=== PATIENT | female | born 1935 | race Caucasian/White ===

== ENCOUNTER 2018-12-21 12:26 | Inpatient (IN) | payer MEDICARE, MEDICAID ==
[~2018-12-21] VITALS: Ht 165.1 cm; Wt 95.3 kg
[~2018-12-21 12:26] MED LIST: FURO-151 PO; PIOG30TA10 PO
[2018-12-21] MEDS ORDERED: TRAMADOL 50MG TABLET PO ONE (13:00)
[2018-12-21] MEDS ORDERED: FUROSEMIDE 40MG/4ML VIAL IVP ONE (13:45)
[2018-12-21 13:47] LABS: BASOPHILS % 0.6 % (0.0-2.0); EOSINOPHILS % 0.3 % (0.0-5.0); HEMATOCRIT. 39.9 % (36.0-48.0); HEMOGLOBIN. 13.1 g/dL (12.0-16.0); LYMPHOCYTES % 18.6 % (20.0-50.0); MEAN CORPUSCULAR HEMOGLOBIN 31.4 pg (28.0-32.0); MEAN CORPUSCULAR VOLUME 95.9 fL (81.0-99.0); MEAN PLATELET VOLUME 9.1 fl (7.4-10.4); MONOCYTES % 6.9 % (2.0-8.0); NEUTROPHILS % 73.6 % (40.0-76.0); PLATELET 172 x1000/uL (130-400); RED BLOOD CELL COUNT 4.16 mill/uL (4.2-5.4); RED CELL DISTRIBUTION WIDTH 15.7 % (11.6-14.6)
[2018-12-21 13:54] LABS: CHLORIDE 112 mEq/L (98-107); PARTIAL THROMBOPLASTIN TIME 22.3 sec (23.4-31.0); PROTHROMBIN TIME 10.3 sec (9.1-11.1)
[2018-12-21 15:31] LABS: CLARITY URINE CLEAR (CLEAR); COLOR URINE YELLOW (YELLOW); KETONES URINE NEGATIVE (NEGATIVE); LEUKOCYTE ESTERASE URINE TRACE (NEGATIVE); NITRITE URINE NEGATIVE (NEGATIVE); OCCULT BLOOD URINE NEGATIVE (NEGATIVE); PROTEIN URINE NEGATIVE (NEGATIVE); SPECIFIC GRAVITY URINE 1.017 (1.005-1.030); UROBILINOGEN URINE 0.2 E.U./dL (0.2-1.0)
[2018-12-21] MEDS ORDERED: NA PHOS,M-B/NA PHOS,DI-BA ENEMA 118ML PR PRN (20:45)
[2018-12-21] MEDS ORDERED: CLONIDINE 0.1MG TABLET PO PRN (20:45)
[2018-12-21] MEDS ORDERED: MAGNESIUM/ALUMINUM HYDROXIDE/SIMETHICONE 30ML UDC PO PRN (20:45)
[2018-12-21] MEDS ORDERED: DOCUSATE SODIUM 100MG CAPSULE PO PRN (20:45)
[2018-12-21] MEDS ORDERED: GUAIFENESIN 200MG/10ML SUGAR FREE UDC PO PRN (20:45)
[2018-12-21] MEDS ORDERED: ONDANSETRON HCL 4MG/2ML INJ IV PRN (20:45)
[2018-12-21] MEDS ORDERED: ACETAMINOPHEN 325MG TABLET PO PRN (20:45)
[2018-12-21] MEDS ORDERED: DIPHENHYDRAMINE 50MG/ML VIAL IV PRN (20:45)
[2018-12-21] MEDS ORDERED: ACETAMINOPHEN 650MG SUPP PR PRN (20:45)
[2018-12-21] MEDS ORDERED: IPRATROPIUM/ALBUTEROL 0.5-3(2.5)MG/3ML NEB INH PRN (20:45)
[2018-12-21] MEDS ORDERED: ACETAMINOPHEN 650MG/20.3ML UDC GT PRN (20:45)
[2018-12-21] MEDS: SODIUM CHLORIDE 0.9% INJ 3ML FLUSH IVF SCH (22:00)
[2018-12-22 00:04] LABS: CREATINE KINASE 36 IU/L (26-192)
[2018-12-22 00:05] LABS: CREATINE KINASE MB FRACTION < 1.0 ng/mL (0.5-3.6)
[2018-12-22] MEDS ORDERED: HYDROCODONE/ACETAMINOPHEN 5/325MG TABLET PO PRN (05:52)
[2018-12-22] MEDS: SODIUM CHLORIDE 0.9% INJ 3ML FLUSH IVF SCH (06:03)
[2018-12-22 06:13] LABS: BASOPHILS % 0.6 % (0.0-2.0); EOSINOPHILS % 1.3 % (0.0-5.0); HEMATOCRIT. 37.5 % (36.0-48.0); HEMOGLOBIN. 12.3 g/dL (12.0-16.0); LYMPHOCYTES % 23.7 % (20.0-50.0); MEAN CORPUSCULAR HEMOGLOBIN 31.2 pg (28.0-32.0); MEAN CORPUSCULAR VOLUME 95.1 fL (81.0-99.0); MEAN PLATELET VOLUME 8.9 fl (7.4-10.4); MONOCYTES % 11.3 % (2.0-8.0); NEUTROPHILS % 63.1 % (40.0-76.0); PLATELET 169 x1000/uL (130-400); RED BLOOD CELL COUNT 3.94 mill/uL (4.2-5.4); RED CELL DISTRIBUTION WIDTH 15.5 % (11.6-14.6)
[2018-12-22 06:19] LABS: CHLORIDE 107 mEq/L (98-107)
[2018-12-22 06:26] LABS: LDL CHOLESTEROL 124 mg/dL (5-100)
[2018-12-22 06:27] LABS: CREATINE KINASE 41 IU/L (26-192)
[2018-12-22 06:28] LABS: HDL CHOLESTEROL 56 mg/dL (40-59)
[2018-12-22 06:30] LABS: CREATINE KINASE MB FRACTION < 1.0 ng/mL (0.5-3.6)
[2018-12-22 10:00] LABS: T4 FREE 1.19 ng/dL (0.76-1.46)
[2018-12-22] MEDS ORDERED: FUROSEMIDE 40MG/4ML VIAL IV NR (11:00)
[2018-12-22] MEDS ORDERED: ENOXAPARIN 40MG/0.4ML SYR SUBCUT SCH (11:15)
[2018-12-22] MEDS: ENOXAPARIN 30MG/0.3ML SYR SUBCUT SCH (11:30)
[2018-12-22 17:54] LABS: CREATINE KINASE 42 IU/L (26-192)
[2018-12-22 17:55] LABS: CREATINE KINASE MB FRACTION < 1.0 ng/mL (0.5-3.6)
[2018-12-22] MEDS: HYDROCODONE/ACETAMINOPHEN 10/325MG TABLET PO PRN ×2 (18:00→22:48)
[2018-12-22] MEDS ORDERED: CEFTRIAXONE 1 G PREMIX 50 ML IV NR (18:16)
[2018-12-22 23:07] LABS: CREATINE KINASE 41 IU/L (26-192)
[2018-12-22 23:08] LABS: CREATINE KINASE MB FRACTION < 1.0 ng/mL (0.5-3.6)
[2018-12-23] MEDS ORDERED: CEPH-569 MT (07:37)
[2018-12-23 07:45] LABS: CREATINE KINASE 41 IU/L (26-192)
[2018-12-23 07:47] LABS: CREATINE KINASE MB FRACTION < 1.0 ng/mL (0.5-3.6)
[2018-12-23 08:46] LABS: EOSINOPHILS % 3.7 % (0.0-5.0); HEMATOCRIT. 40.5 % (36.0-48.0); HEMOGLOBIN. 13.6 g/dL (12.0-16.0); MEAN CORPUSCULAR HEMOGLOBIN 31.7 pg (28.0-32.0); MEAN CORPUSCULAR VOLUME 94.7 fL (81.0-99.0); MEAN PLATELET VOLUME 8.8 fl (7.4-10.4); MONOCYTES % 14.3 % (2.0-8.0); PLATELET 162 x1000/uL (130-400); RED BLOOD CELL COUNT 4.27 mill/uL (4.2-5.4); RED CELL DISTRIBUTION WIDTH 15.5 % (11.6-14.6)
[2018-12-23 08:49] LABS: CHLORIDE 107 mEq/L (98-107)
[2018-12-23] MEDS ORDERED: FUROSEMIDE 40MG/4ML VIAL IV SCH (09:00)
[2018-12-23 10:07] VITALS: BP 151/41
[2018-12-23] MEDS ORDERED: ASPI-1159 MT (10:58)
[2018-12-23] MEDS ORDERED: ASPI-1160 MT (10:58)
[2018-12-23] MEDS ORDERED: VANCOMYCIN 1500MG in DEXTROSE 5% WATER 250ML IV NR (11:30)
[2018-12-23 12:00] VITALS: BP 134/46
[2018-12-23] MEDS ORDERED: INFLUENZA VIRUS VACCINE(AFLURIA) 0.5ML SYR IM ONE (12:30)
[2018-12-23] MEDS ORDERED: PNEUMOCOCCAL 23-VAL P-SAC VAC 0.5 ML IM ONE (12:30)
[2018-12-23] MEDS ORDERED: IOHEXOL-350 100 ML BOTTLE ONE (15:19)
[2018-12-23] MEDS ORDERED: CEFTRIAXONE 1,000 MG in DEXTROSE 5% WATER 50 ML IV SCH (18:00)
[2018-12-23] MEDS ORDERED: CEFTRIAXONE 1 G PREMIX 50 ML IV SCH (18:17)
[2018-12-23 20:00] VITALS: BP 142/38
[2018-12-23] MEDS: HYDROCODONE/ACETAMINOPHEN 10/325MG TABLET PO PRN (20:18)
[2018-12-23] MEDS: ENOXAPARIN 30MG/0.3ML SYR SUBCUT SCH (20:19)
[2018-12-24] VITALS: BP_SYST 135; BP_SYST 98; BP_DIAS 42
[2018-12-24 04:00] VITALS: BP 141/51
[2018-12-24] MEDS: HYDROCODONE/ACETAMINOPHEN 10/325MG TABLET PO PRN ×2 (04:53→13:49)
[2018-12-24] MEDS: SODIUM CHLORIDE 0.9% INJ 3ML FLUSH IVF SCH (05:25)
[2018-12-24 08:00] VITALS: BP 121/43
[2018-12-24] MEDS: ENOXAPARIN 30MG/0.3ML SYR SUBCUT SCH (08:29)
[2018-12-24] MEDS ORDERED: VANCOMYCIN 1 G PREMIX 200 ML IV SCH (09:00)
[2018-12-24 12:00] VITALS: BP 143/38
[2018-12-24] MEDS ORDERED: VANCOMYCIN 1250MG in DEXTROSE 5% WATER 250ML IV SCH (12:00)
[2018-12-24 14:33] VITALS: BP 143/43
[2018-12-24 16:00] VITALS: BP 144/42
== END 2018-12-24 19:02 | disposition home or self-care (01) | DRG 194 ==
LOC: ER 13:11 → 7WST 14:21 → EDBEDREQ 14:23 → ENRESERV 12-23 07:14
PROVIDERS: ADMIT Family Medicine; ATTEND Family Medicine
DX: I11.0 Hypertensive heart disease with heart failure (principal); L03.115 Cellulitis of right lower limb; E87.5 Hyperkalemia; E44.1 Mild protein-calorie malnutrition; L03.116 Cellulitis of left lower limb; E11.9 Type 2 diabetes mellitus without complications; E66.9 Obesity, unspecified; E78.00 Pure hypercholesterolemia, unspecified; E78.5 Hyperlipidemia, unspecified; M17.0 Bilateral primary osteoarthritis of knee; Z90.49 Acquired absence of other specified parts of digestive tract; Z90.710 Acquired absence of both cervix and uterus; Z98.891 History of uterine scar from previous surgery; Z68.34 Body mass index [BMI] 34.0-34.9, adult; I50.33 Acute on chronic diastolic (congestive) heart failure
CPT/HCPCS: 36415; 71045; 73562; 75635; 80061; 82550; 82553; 82962; 83036; 83880; 84439; 84443; 84484; 85379; 90732; 93005; 93306; 93923; 93970; 96365; 96375; 99284; 99285; J0696; J1650; J1940; J2405; J3370; J7050; J7060; Q9967

== ENCOUNTER 2022-04-21 10:35 | Inpatient (IN) | payer MEDICARE, MEDICAID ==
[~2022-04-21] VITALS: Ht 165.1 cm; Wt 82.1 kg
[~2022-04-21 10:35] MED LIST changes: +ASPI-1160 MT; +ASPI-1497 MT; +CEPH-569 MT
[2022-04-21] MEDS ORDERED: SODIUM CHLORIDE 0.9% 1000ML BAG (SEPSIS BOLUS) IV ONE (11:15)
[2022-04-21] MEDS ORDERED: VANCOMYCIN 1G PREMIX 200 ML IV ONE (11:15)
[2022-04-21] MEDS ORDERED: PIPERACILLIN/TAZ 3.375G PREMIX 50 ML IV ONE (11:15)
[2022-04-21 12:49] LABS: BASOPHILS % 0.8 % (0.0-2.0); EOSINOPHILS % 5.3 % (0.0-5.0); HEMATOCRIT. 36.2 % (36.0-48.0); HEMOGLOBIN. 11.9 g/dL (12.0-16.0); LYMPHOCYTES % 36.9 % (20.0-50.0); MEAN CORPUSCULAR HEMOGLOBIN 29.5 pg (28.0-32.0); MEAN CORPUSCULAR VOLUME 90.2 fL (81.0-99.0); MEAN PLATELET VOLUME 8.4 fl (7.4-10.4); MONOCYTES % 9.4 % (2.0-8.0); NEUTROPHILS % 47.6 % (40.0-76.0); PLATELET 300 x1000/uL (130-400); RED BLOOD CELL COUNT 4.01 mill/uL (4.2-5.4); RED CELL DISTRIBUTION WIDTH 18.8 % (11.6-14.6)
[2022-04-21 12:50] LABS: CHLORIDE 102 mEq/L (98-107)
[2022-04-21] MEDS ORDERED: DEXTROSE 50% WATER 50ML SYRINGE IV ONE (13:30)
[2022-04-21] MEDS ORDERED: CLONIDINE 0.1MG TABLET PO PRN (14:30)
[2022-04-21] MEDS ORDERED: IPRATROPIUM/ALBUTEROL 0.5-3(2.5)MG/3ML NEB HHN PRN (14:30)
[2022-04-21] MEDS ORDERED: ONDANSETRON HCL 4MG/2ML INJ IV PRN (14:30)
[2022-04-21] MEDS ORDERED: CEFTRIAXONE 1 G PREMIX 50 ML IV NR (14:30)
[2022-04-21] MEDS ORDERED: AZITHROMYCIN 500MG/250ML 250 ML IV NR (14:45)
[2022-04-21] MEDS ORDERED: SODIUM CHLORIDE 0.9% 1,000 ML IV ONE (16:00)
[2022-04-21 19:57] VITALS: BP 104/69
[2022-04-21 20:00] VITALS: BP 104/69
[2022-04-21] MEDS: ACETAMINOPHEN 325MG TABLET PO PRN (21:57)
[2022-04-21] MEDS: ATORVASTATIN CALCIUM 10MG TABLET PO SCH (21:57)
[2022-04-22] VITALS (9 sets, daily range): BP systolic 94–133; BP diastolic 38–70
[2022-04-22] MEDS: DIPHENHYDRAMINE 50MG/ML VIAL IV PRN (03:14)
[2022-04-22] MEDS ORDERED: DEXTROSE 50% WATER 50ML SYRINGE IV PRN (06:45)
[2022-04-22 08:08] LABS: BASOPHILS % 0.9 % (0.0-2.0); EOSINOPHILS % 6.9 % (0.0-5.0); HEMATOCRIT. 31.1 % (36.0-48.0); HEMOGLOBIN. 10.4 g/dL (12.0-16.0); LYMPHOCYTES % 20.3 % (20.0-50.0); MEAN CORPUSCULAR HEMOGLOBIN 30.6 pg (28.0-32.0); MEAN CORPUSCULAR VOLUME 91.5 fL (81.0-99.0); MEAN PLATELET VOLUME 8.6 fl (7.4-10.4); MONOCYTES % 12.5 % (2.0-8.0); NEUTROPHILS % 59.4 % (40.0-76.0); PLATELET 261 x1000/uL (130-400)
[2022-04-22 08:18] LABS: CHLORIDE 104 mEq/L (98-107)
[2022-04-22] MEDS ORDERED: LIDOCAINE HCL 1% 10 MG/ML 10ML VIAL ONE (08:56)
[2022-04-22] MEDS ORDERED: AZITHROMYCIN 500 MG in DEXT 5% WATER 250 ML IV SCH (10:00)
[2022-04-22] MEDS: DEXT 5%/0.9% NACL 1,000 ML IV SCH (11:22)
[2022-04-22] MEDS: CEFTRIAXONE 1,000 MG in DEXTROSE 5% WATER 50 ML IV SCH (11:22)
[2022-04-22] MEDS: BLOOD SUGAR DIAGNOSTIC STRIP TEST SCH ×4 (12:24→20:59)
[2022-04-22] MEDS ORDERED: MAGNESIUM 2 G PREMIX 50 ML IV NR (13:00)
[2022-04-22] MEDS: ACETAMINOPHEN 325MG TABLET PO PRN (14:00)
[2022-04-22] MEDS: AZITHROMYCIN 500 MG in DEXT 5% WATER 250 ML IV SCH (16:44)
[2022-04-22] MEDS ORDERED: NALOXONE HCL 0.4MG/ML VIAL IV PRN (17:30)
[2022-04-22] MEDS: METOCLOPRAMIDE HCL 10MG/2ML VIAL IV SCH (18:43)
[2022-04-22] MEDS: ATORVASTATIN CALCIUM 10MG TABLET PO SCH (20:58)
[2022-04-23] VITALS (16 sets, daily range): BP systolic 89–127; BP diastolic 35–74
[2022-04-23] MEDS: METOCLOPRAMIDE HCL 10MG/2ML VIAL IV SCH ×5 (00:14→23:19)
[2022-04-23] MEDS: ACETAMINOPHEN 325MG TABLET PO PRN ×2 (05:09→17:12)
[2022-04-23] MEDS: BLOOD SUGAR DIAGNOSTIC STRIP TEST SCH ×4 (06:23→20:33)
[2022-04-23] MEDS: DEXT 5%/0.9% NACL 1,000 ML IV SCH ×2 (09:23→21:52)
[2022-04-23] MEDS: CEFTRIAXONE 1,000 MG in DEXTROSE 5% WATER 50 ML IV SCH (09:23)
[2022-04-23 11:14] LABS: BASOPHILS % 0.6 % (0.0-2.0); EOSINOPHILS % 5.5 % (0.0-5.0); HEMATOCRIT. 27.2 % (36.0-48.0); LYMPHOCYTES % 31.2 % (20.0-50.0); MEAN CORPUSCULAR HEMOGLOBIN 29.8 pg (28.0-32.0); MEAN CORPUSCULAR VOLUME 90.2 fL (81.0-99.0); MEAN PLATELET VOLUME 8.9 fl (7.4-10.4); MONOCYTES % 11.4 % (2.0-8.0); NEUTROPHILS % 51.3 % (40.0-76.0); PLATELET 240 x1000/uL (130-400); RED BLOOD CELL COUNT 3.02 mill/uL (4.2-5.4); RED CELL DISTRIBUTION WIDTH 18.6 % (11.6-14.6)
[2022-04-23 11:38] LABS: CHLORIDE 108 mEq/L (98-107)
[2022-04-23] MEDS ORDERED: POTASSIUM CHLORIDE 20MEQ/PACKET PO NR (12:30)
[2022-04-23 14:41] LABS: TOTAL IRON BINDING CAPACITY 117 ug/dL (250-450)
[2022-04-23 15:00] LABS: FERRITIN 104 ng/mL (10-291)
[2022-04-23 15:14] LABS: VITAMIN B12 SERUM >2000 pg/mL pg/mL (211-911)
[2022-04-23] MEDS: PANTOPRAZOLE SODIUM 40 MG/VIAL IV SCH (15:41)
[2022-04-23] MEDS: AZITHROMYCIN 500 MG in DEXT 5% WATER 250 ML IV SCH (15:41)
[2022-04-23] MEDS: ATORVASTATIN CALCIUM 10MG TABLET PO SCH (20:33)
[2022-04-24] VITALS (10 sets, daily range): BP systolic 75–123; BP diastolic 36–60
[2022-04-24] MEDS: METOCLOPRAMIDE HCL 10MG/2ML VIAL IV SCH ×4 (05:05→23:13)
[2022-04-24 05:44] LABS: CHLORIDE 109 mEq/L (98-107)
[2022-04-24] MEDS: BLOOD SUGAR DIAGNOSTIC STRIP TEST SCH ×4 (05:50→21:30)
[2022-04-24 06:32] LABS: BASOPHILS % 0.8 % (0.0-2.0); EOSINOPHILS % 6.4 % (0.0-5.0); HEMATOCRIT. 29.5 % (36.0-48.0); HEMOGLOBIN. 9.9 g/dL (12.0-16.0); LYMPHOCYTES % 32.4 % (20.0-50.0); MEAN CORPUSCULAR HEMOGLOBIN 29.9 pg (28.0-32.0); MEAN CORPUSCULAR VOLUME 89.2 fL (81.0-99.0); MEAN PLATELET VOLUME 9.4 fl (7.4-10.4); MONOCYTES % 11.1 % (2.0-8.0); NEUTROPHILS % 49.3 % (40.0-76.0); PLATELET 258 x1000/uL (130-400); RED BLOOD CELL COUNT 3.31 mill/uL (4.2-5.4); RED CELL DISTRIBUTION WIDTH 18.5 % (11.6-14.6)
[2022-04-24] MEDS: PANTOPRAZOLE SODIUM 40 MG/VIAL IV SCH (08:09)
[2022-04-24] MEDS: CEFTRIAXONE 1,000 MG in DEXTROSE 5% WATER 50 ML IV SCH (08:09)
[2022-04-24] MEDS: AZITHROMYCIN 500 MG in DEXT 5% WATER 250 ML IV SCH (16:00)
[2022-04-24] MEDS: ACETAMINOPHEN 325MG TABLET PO PRN (18:34)
[2022-04-24] MEDS: DEXT 5%/0.9% NACL 1,000 ML IV SCH (18:35)
[2022-04-24 18:36] LABS: INR 1.1; PROTHROMBIN TIME 11.3 sec (9.6-11.0)
[2022-04-24 19:06] LABS: CLARITY URINE TURBID (CLEAR); COLOR URINE YELLOW (YELLOW); KETONES URINE TRACE (NEGATIVE); LEUKOCYTE ESTERASE URINE 3+ (NEGATIVE); NITRITE URINE NEGATIVE (NEGATIVE); OCCULT BLOOD URINE 1+ (NEGATIVE); PH URINE 5.5 (4.5-8.0); PROTEIN URINE 1+ (NEGATIVE); SPECIFIC GRAVITY URINE 1.016 (1.005-1.030); UROBILINOGEN URINE 0.2 E.U./dL (0.2-1.0)
[2022-04-24] MEDS: ATORVASTATIN CALCIUM 10MG TABLET PO SCH (21:30)
[2022-04-25] VITALS (11 sets, daily range): BP systolic 95–132; BP diastolic 28–70
[2022-04-25] MEDS: METOCLOPRAMIDE HCL 10MG/2ML VIAL IV SCH ×3 (05:54→17:22)
[2022-04-25 06:22] LABS: EOSINOPHILS % 8.2 % (0.0-5.0); HEMATOCRIT. 26.3 % (36.0-48.0); HEMOGLOBIN. 8.8 g/dL (12.0-16.0); LYMPHOCYTES % 30.3 % (20.0-50.0); MEAN CORPUSCULAR HEMOGLOBIN 30.2 pg (28.0-32.0); MONOCYTES % 12.2 % (2.0-8.0); NEUTROPHILS % 48.3 % (40.0-76.0); PLATELET 236 x1000/uL (130-400); RED BLOOD CELL COUNT 2.92 mill/uL (4.2-5.4); RED CELL DISTRIBUTION WIDTH 18.4 % (11.6-14.6)
[2022-04-25 06:32] LABS: CHLORIDE 111 mEq/L (98-107)
[2022-04-25] MEDS: BLOOD SUGAR DIAGNOSTIC STRIP TEST SCH ×4 (07:30→21:12)
[2022-04-25] MEDS: PANTOPRAZOLE SODIUM 40 MG/VIAL IV SCH (08:32)
[2022-04-25] MEDS: CEFTRIAXONE 1,000 MG in DEXTROSE 5% WATER 50 ML IV SCH (08:32)
[2022-04-25] MEDS ORDERED: EPHEDRINE SULFATE 50MG/ML VIAL ONE (09:42)
[2022-04-25] MEDS ORDERED: LIDOCAINE HCL 1% 10 MG/ML 10ML VIAL ONE (09:42)
[2022-04-25] MEDS ORDERED: PROPOFOL 200MG/20ML VIAL IV ONE (09:42)
[2022-04-25] MEDS ORDERED: PHENYLEPHRINE HCL 10 MG/ML 1ML (IV VIAL) IV ONE (09:43)
[2022-04-25] MEDS: HYDROCODONE/ACETAMINOPHEN 5/325MG TABLET PO PRN (13:12)
[2022-04-25] MEDS: AZITHROMYCIN 500 MG in DEXT 5% WATER 250 ML IV SCH (15:44)
[2022-04-25] MEDS: DEXT 5%/0.9% NACL 1,000 ML IV SCH (15:45)
[2022-04-25] MEDS: ATORVASTATIN CALCIUM 10MG TABLET PO SCH (20:45)
[2022-04-26] VITALS (11 sets, daily range): BP systolic 92–125; BP diastolic 33–80
[2022-04-26] MEDS: METOCLOPRAMIDE HCL 10MG/2ML VIAL IV SCH ×5 (00:01→23:54)
[2022-04-26 05:41] LABS: EOSINOPHILS % 8.3 % (0.0-5.0); HEMATOCRIT. 27.4 % (36.0-48.0); HEMOGLOBIN. 9.1 g/dL (12.0-16.0); LYMPHOCYTES % 31.3 % (20.0-50.0); MEAN CORPUSCULAR HEMOGLOBIN 30.2 pg (28.0-32.0); MEAN CORPUSCULAR VOLUME 90.5 fL (81.0-99.0); MEAN PLATELET VOLUME 8.9 fl (7.4-10.4); MONOCYTES % 10.3 % (2.0-8.0); NEUTROPHILS % 49.1 % (40.0-76.0); PLATELET 248 x1000/uL (130-400); RED BLOOD CELL COUNT 3.02 mill/uL (4.2-5.4)
[2022-04-26 05:50] LABS: CHLORIDE 113 mEq/L (98-107)
[2022-04-26] MEDS: BLOOD SUGAR DIAGNOSTIC STRIP TEST SCH ×4 (07:30→20:28)
[2022-04-26] MEDS ORDERED: BARIUM SULFATE 176 GM SUSP.RECON ONE (09:53)
[2022-04-26] MEDS: PANTOPRAZOLE SODIUM 40 MG/VIAL IV SCH (09:56)
[2022-04-26] MEDS: CEFTRIAXONE 1,000 MG in DEXTROSE 5% WATER 50 ML IV SCH (09:56)
[2022-04-26] MEDS: HYDROCODONE/ACETAMINOPHEN 5/325MG TABLET PO PRN (09:57)
[2022-04-26] MEDS: DEXT 5%/0.9% NACL 1,000 ML IV SCH (15:35)
[2022-04-26] MEDS: DIPHENHYDRAMINE 50MG/ML VIAL IV PRN (15:36)
[2022-04-26] MEDS: ATORVASTATIN CALCIUM 10MG TABLET PO SCH (20:32)
[2022-04-27] VITALS (19 sets, daily range): BP systolic 82–139; BP diastolic 39–69
[2022-04-27] MEDS: METOCLOPRAMIDE HCL 10MG/2ML VIAL IV SCH ×3 (06:27→17:49)
[2022-04-27] MEDS: BLOOD SUGAR DIAGNOSTIC STRIP TEST SCH ×4 (06:34→21:35)
[2022-04-27 07:19] LABS: BASOPHILS % 0.8 % (0.0-2.0); EOSINOPHILS % 5.9 % (0.0-5.0); HEMATOCRIT. 27.3 % (36.0-48.0); HEMOGLOBIN. 9.2 g/dL (12.0-16.0); LYMPHOCYTES % 25.1 % (20.0-50.0); MEAN CORPUSCULAR HEMOGLOBIN 30.2 pg (28.0-32.0); MEAN CORPUSCULAR VOLUME 89.3 fL (81.0-99.0); MEAN PLATELET VOLUME 8.9 fl (7.4-10.4); MONOCYTES % 10.8 % (2.0-8.0); NEUTROPHILS % 57.4 % (40.0-76.0); PLATELET 263 x1000/uL (130-400); RED BLOOD CELL COUNT 3.05 mill/uL (4.2-5.4); RED CELL DISTRIBUTION WIDTH 17.9 % (11.6-14.6)
[2022-04-27 07:50] LABS: CHLORIDE 112 mEq/L (98-107)
[2022-04-27] MEDS: PANTOPRAZOLE SODIUM 40 MG/VIAL IV SCH (08:52)
[2022-04-27] MEDS: ZINC SULFATE 220 MG ( 50 ) CAPSULE PO SCH (08:52)
[2022-04-27] MEDS: ASCORBIC ACID 500 MG TABLET PO SCH (08:52)
[2022-04-27] MEDS: ATORVASTATIN CALCIUM 10MG TABLET PO SCH (21:34)
[2022-04-27] MEDS: DEXT 5%/0.9% NACL 1,000 ML IV SCH (21:35)
[2022-04-27] MEDS: ACETAMINOPHEN 325MG TABLET PO PRN (22:32)
[2022-04-28] VITALS: BP 123/76
[2022-04-28] MEDS: METOCLOPRAMIDE HCL 10MG/2ML VIAL IV SCH ×4 (01:22→17:35)
[2022-04-28 04:00] VITALS: BP 147/48
[2022-04-28] MEDS: BLOOD SUGAR DIAGNOSTIC STRIP TEST SCH ×4 (06:00→20:35)
[2022-04-28 06:16] LABS: BASOPHILS % 0.8 % (0.0-2.0); EOSINOPHILS % 6.6 % (0.0-5.0); HEMOGLOBIN. 8.5 g/dL (12.0-16.0); LYMPHOCYTES % 26.2 % (20.0-50.0); MEAN CORPUSCULAR HEMOGLOBIN 29.6 pg (28.0-32.0); MEAN CORPUSCULAR VOLUME 90.1 fL (81.0-99.0); MEAN PLATELET VOLUME 8.8 fl (7.4-10.4); MONOCYTES % 10.7 % (2.0-8.0); NEUTROPHILS % 55.7 % (40.0-76.0); PLATELET 241 x1000/uL (130-400); RED BLOOD CELL COUNT 2.89 mill/uL (4.2-5.4); RED CELL DISTRIBUTION WIDTH 17.9 % (11.6-14.6)
[2022-04-28 06:33] LABS: CHLORIDE 112 mEq/L (98-107)
[2022-04-28 08:00] VITALS: BP 122/43
[2022-04-28] MEDS ORDERED: LACTULOSE 20G/30ML UDC PO NR (09:30)
[2022-04-28] MEDS ORDERED: OMEP40CA20 MT (09:54)
[2022-04-28] MEDS: PANTOPRAZOLE SODIUM 40 MG/VIAL IV SCH (10:15)
[2022-04-28] MEDS: ASCORBIC ACID 500 MG TABLET PO SCH (10:16)
[2022-04-28] MEDS: ZINC SULFATE 220 MG ( 50 ) CAPSULE PO SCH (10:16)
[2022-04-28 12:00] VITALS: BP 130/50
[2022-04-28] MEDS: ACETAMINOPHEN 325MG TABLET PO PRN (15:23)
[2022-04-28 16:14] VITALS: BP 118/79
[2022-04-28 20:00] VITALS: BP 127/74
[2022-04-28] MEDS: ATORVASTATIN CALCIUM 10MG TABLET PO SCH (20:32)
[2022-04-28] MEDS: DEXT 5%/0.9% NACL 1,000 ML IV SCH (22:07)
[2022-04-29] VITALS: BP 119/68
[2022-04-29] MEDS: METOCLOPRAMIDE HCL 10MG/2ML VIAL IV SCH ×4 (01:09→17:58)
[2022-04-29 03:53] VITALS: BP 128/67
[2022-04-29] MEDS: BLOOD SUGAR DIAGNOSTIC STRIP TEST SCH ×3 (07:31→17:14)
[2022-04-29 07:35] VITALS: BP 126/38
[2022-04-29 07:35] LABS: BASOPHILS % 0.8 % (0.0-2.0); EOSINOPHILS % 6.5 % (0.0-5.0); HEMATOCRIT. 29.9 % (36.0-48.0); HEMOGLOBIN. 9.9 g/dL (12.0-16.0); LYMPHOCYTES % 23.7 % (20.0-50.0); MEAN CORPUSCULAR HEMOGLOBIN 29.9 pg (28.0-32.0); MEAN CORPUSCULAR VOLUME 90.5 fL (81.0-99.0); MEAN PLATELET VOLUME 8.4 fl (7.4-10.4); MONOCYTES % 8.8 % (2.0-8.0); NEUTROPHILS % 60.2 % (40.0-76.0); PLATELET 278 x1000/uL (130-400); RED BLOOD CELL COUNT 3.31 mill/uL (4.2-5.4); RED CELL DISTRIBUTION WIDTH 17.9 % (11.6-14.6)
[2022-04-29 07:42] LABS: CHLORIDE 112 mEq/L (98-107)
[2022-04-29] MEDS: ACETAMINOPHEN 325MG TABLET PO PRN (08:59)
[2022-04-29] MEDS: ASCORBIC ACID 500 MG TABLET PO SCH (08:59)
[2022-04-29] MEDS: ZINC SULFATE 220 MG ( 50 ) CAPSULE PO SCH (08:59)
[2022-04-29] MEDS: PANTOPRAZOLE SODIUM 40 MG/VIAL IV SCH (09:06)
[2022-04-29 11:54] VITALS: BP 104/44
[2022-04-29 14:21] VITALS: BP 104/44
[2022-04-29] MEDS: DEXT 5%/0.9% NACL 1,000 ML IV SCH (17:58)
== END 2022-04-29 18:00 | disposition home or self-care (01) | DRG 139 ==
LOC: ER 12:01 → EDBEDREQTM 14:00 → EDBEDREQ 14:00 → EDBEDREQSVC 14:00 → ENRESERV 16:33 → 5EST 19:32 → 6WST 04-28 13:30
PROVIDERS: ADMIT Internal Medicine; ATTEND Internal Medicine
PROC: 05HY33Z Insertion of Infusion Device into Upper Vein, Percutaneous Approach (ICD-10-PCS; 2022-04-22)
PROC: B54MZZA Ultrasonography of Right Upper Extremity Veins, Guidance (ICD-10-PCS; 2022-04-22)
PROC: 0DB78ZX Excision of Stomach, Pylorus, Via Natural or Artificial Opening Endoscopic, Diagnostic (ICD-10-PCS; principal; 2022-04-25)
DX: J18.9 Pneumonia, unspecified organism (principal); E11.649 Type 2 diabetes mellitus with hypoglycemia without coma; E46 Unspecified protein-calorie malnutrition; L89.156 Pressure-induced deep tissue damage of sacral region; K56.7 Ileus, unspecified; R13.12 Dysphagia, oropharyngeal phase; I51.7 Cardiomegaly; N39.0 Urinary tract infection, site not specified; E78.00 Pure hypercholesterolemia, unspecified; Z20.822 Contact with and (suspected) exposure to COVID-19; D64.9 Anemia, unspecified; E78.5 Hyperlipidemia, unspecified; K29.70 Gastritis, unspecified, without bleeding; M19.90 Unspecified osteoarthritis, unspecified site; Z79.82 Long term (current) use of aspirin; Z74.01 Bed confinement status; Z68.31 Body mass index [BMI] 31.0-31.9, adult; R13.10 Dysphagia, unspecified
CPT/HCPCS: 36415; 36573; 71045; 74018; 74230; 80048; 80053; 81003; 82040; 82607; 82728; 82746; 82962; 83036; 83540; 83550; 83605; 83735; 83880; 84134; 84145; 84484; 85025; 85044; 87426; 88305; 88312; 88313; 92610; 92611; 93005; 93923; 93970; 97161; 97164; 97165; 99285; C1725; C9113; C9803; J0456; J0696; J1200; J2370; J2405; J2543; J2704; J2765; J3370; J3475; J3490; J7030; J7042; J7060